=== PATIENT | female | born 1990 | race Caucasian/White ===

== ENCOUNTER 2019-03-20 01:21 | Emergency (ER) | payer BC ==
[~2019-03-20] VITALS: Ht 167.6 cm; Wt 70.5 kg
[2019-03-20 01:24] VITALS: BP 143/84
[2019-03-20 01:46] LABS: CLARITY,URINE CLEAR (Clear); GLUCOSE, URINE NEGATIVE (Neg); LEUKOCYTE ESTERASE ,URINE LARGE (Neg); OCCULT BLOOD,URINE LARGE (Neg)
[2019-03-20 01:47] LABS: URINE HCG NEGATIVE (NEG)
[2019-03-20 01:48] LABS: UA COLLECTION TYPE VOIDED
[2019-03-20 01:49] LABS: COLOR,URINE ORANGE (Yellow)
[2019-03-20] MEDS ORDERED: phenazopyridine 100mg tablet PO ONE (01:50)
[2019-03-20 01:55] LABS: BACTERIA,URINE 3+ /HPF (Neg); RBC,URINE 0-2 /HPF (0-2); SQUAMOUS EPITHELIAL CELL,UR FEW /LPF (FEW); WBC,URINE 30-50 /HPF (0-4)
[2019-03-20] MEDS ORDERED: acetaminophen 325mg tablet PO ONE (01:55)
[2019-03-20] MEDS ORDERED: PHEN-716 PO (01:56)
[2019-03-20] MEDS ORDERED: SULF1TAB49 PO (01:56)
== END 2019-03-20 02:09 | disposition home or self-care (01) ==
LOC: ER 01:23
DX: N39.0 Urinary tract infection, site not specified (principal); F41.9 Anxiety disorder, unspecified; F32.9 Major depressive disorder, single episode, unspecified; Z79.899 Other long term (current) drug therapy
CPT/HCPCS: 81001; 81025; 87077; 87088; 87186; 99283